=== PATIENT | female | born 1970 | race Hispanic/Latino ===

== ENCOUNTER 2018-02-20 09:27 | Observation (INO) | payer MEDICAID ==
[2018-02-16 15:33] LABS: Basophils # (Auto) 0.1 K/mm3 (0.0-0.1); Basophils % (Auto) 1.1 % (0.0-1.8); Eosinophils # (Auto) 0.1 K/mm3 (0.0-0.4); Eosinophils % (Auto) 1.4 % (0.0-4.3); Hematocrit 40.1 % (30.3-42.9); Hemoglobin 13.6 gm/dl (10.1-14.3); Lymphocytes # (Auto) 2.4 K/mm3 (1.2-5.4); Lymphocytes % (Auto) 30.1 % (13.4-35.0); Mean Corpuscular HGB Conc 34 % (30-34); Mean Corpuscular Hemoglobin 31 pg (28-32); Mean Corpuscular Volume 91 fl (79-97); Monocytes # (Auto) 0.7 K/mm3 (0.0-0.8); Monocytes % (Auto) 8.2 % (0.0-7.3); Platelet Count 436 K/mm3 (140-440); Red Blood Count 4.41 M/mm3 (3.65-5.03); Red Cell Distribution Width 12.8 % (13.2-15.2)
--- NOTE | 2018-02-17 10:50 | Anesthesia Day of Surgery ---
Anesthesia Day of Surgery - Day of Surgery Patient Examined: Yes Patient H&P Reviewed: Yes Patient is NPO: Yes
[~2018-02-20 09:27] MED LIST: LACTATED RINGERS 1,000 ML IV SCH; NEURONTIN PO NR; VERSED IV NR
[2018-02-20] MEDS ORDERED: NACL BACTERIOSTATIC INFILTRATI ONE (09:37)
[2018-02-20] MEDS ORDERED: PEPCID IV NR (10:00)
[2018-02-20] MEDS ORDERED: ANCEF/STERILE WATER 2 GM/20 ML IV NR (10:00)
[2018-02-20] MEDS ORDERED: TRANSDERM-SCOP TD NR (10:00)
[2018-02-20] MEDS ORDERED: SUBLIMAZE ONE ×2 (12:22→13:03)
[2018-02-20] MEDS ORDERED: REGLAN ONE (13:03)
[2018-02-20] MEDS ORDERED: DIPRIVAN 10 MG/ML IV ONE (13:03)
[2018-02-20] MEDS ORDERED: XYLOCAINE MPF 2% ONE (13:03)
[2018-02-20] MEDS ORDERED: QUELICIN ONE (13:03)
[2018-02-20] MEDS ORDERED: ZOFRAN ONE (13:03)
[2018-02-20] MEDS ORDERED: NACL P/F VIAL (10 ML) 10 ML ONE (13:16)
[2018-02-20] MEDS ORDERED: NACL 0.9% 1000 ML 1,000 ML ONE ×3 (13:16→18:48)
[2018-02-20] MEDS ORDERED: METHYLENE BLUE ONE (13:17)
[2018-02-20] MEDS ORDERED: BACITRACIN ONE (13:17)
[2018-02-20] MEDS ORDERED: ANCEF ONE ×2 (13:17→18:29)
[2018-02-20] MEDS ORDERED: GARAMYCIN ONE (13:17)
[2018-02-20] MEDS ORDERED: NACL 0.9% 100 ML ONE (13:18)
[2018-02-20] MEDS ORDERED: HEPARIN 10,000 UNITS/10 ML ONE (13:18)
--- NOTE | 2018-02-20 13:43 | Anesthesia Day of Surgery ---
Anesthesia Day of Surgery - Day of Surgery Patient Examined: Yes Patient H&P Reviewed: Yes Patient is NPO: Yes
[2018-02-20] MEDS ORDERED: DEMEROL IV PRN (13:44)
[2018-02-20] MEDS ORDERED: ZOFRAN IV PRN ×2 (13:44→19:04)
[2018-02-20] MEDS ORDERED: TORADOL IV PRN ×2 (13:44→23:02)
--- NOTE | 2018-02-20 13:44 | Anesthesia Consultation ---
Anesthesia Consult and Med Hx Date of service: 02/20/18 - Airway Anesthetic Teeth Evaluation: Good ROM Head & Neck: Adequate Mental/Hyoid Distance: Adequate Mallampati Class: Class II Intubation Access Assessment: Probably Good - Pulmonary Exam CTA: Yes - Cardiac Exam Cardiac Exam: RRR - Pre-Operative Health Status ASA Pre-Surgery Classification: ASA2 Proposed Anesthetic Plan: General - Central Nervous System Hx Psychiatric Problems: Yes - Other Systems Hx Alcohol Use: Yes (SOCIALLY) Hx Substance Use: No Hx Cancer: Yes
[2018-02-20] MEDS ORDERED: LACTATED RINGERS 1,000 ML ONE ×2 (13:47→14:28)
[2018-02-20] MEDS ORDERED: VERSED ONE (13:48)
--- NOTE | 2018-02-20 13:50 | Operative Report ---
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 Asst.: Ellen Armenta MD Anesthesia: Gen. Findings: Two right breast clips present within right total mastectomy. 4 sentinel lymph nodes identified and negative for malignancy on frozen section of pathology, one SLN with questionable atypia Complications: None Drains: per Plastic Surgery Estimated blood loss: Minimal Disposition: PACU in good condition Indications for operative procedure: This is a 48-year-old lady with newly diagnosed stage I right breast cancer of the lower outer quadrant, right breast mass at the 7:00 position 5-6 cm from the nipple, IDCA [id number] ER positive. Recommendations were to proceed with a right total mastectomy with SLNB and possible ALND and prophylactic left total mastectomy given CHEK2 positive gene mutation. Patient wished to proceed with plastic reconstructive surgery. Procedure in detail: Anesthesia placed a bilateral pectoral muscle block prior to going to the operating room. The patient was taken to the operating room and was placed supine. Gen. anesthesia was administered. The right nipple was injected with radioisotope and 1 cc of methylene blue dye with 1 cc of saline. Ultrasound was used to sundeep area of known right breast cancer at the 7:00 position 5-6 cm from the nipple. Bilateral breast were prepped and draped in the normal postoperative fashion. Timeout was performed. Typical mastectomy incision markings were made with right mastectomy marking to include known breast cancer at the 7:[address] Wynne placed left port. Attention was then taken towards the left breast first. A skin incision was made with a 10 blade knife and dissection taken down to the subcutaneous tissues. First began raising of the superior flap to the level of the clavicle superiorly and posteriorly to the pectoralis muscle. Followed by raising of the medial flap to the level of the sternum and posteriorly to the pectoralis muscle. Followed by raising of the lateral flap to the level of the latissimus dorsi muscle and taken down posteriorly. Followed by raising of the inferior flap to the level of the inframammary fold taken posterior to the pectoralis muscle. The mastectomy/breast was removed from the pectoralis muscle without incident. The specimen was appropriately marked and sent to pathology. Hemostasis was obtained with the bovie cautery. Chest wall was irrigated and suctioned. Attention was taken towards the right breast. A gamma probe was inserted into the axilla to identify the sentinel lymph node location. A skin incision was made with a 10 blade knife and dissection taken down to the subcutaneous tissues. First began raising of the superior flap to the level of the clavicle superiorly and posteriorly to the pectoralis muscle. Followed by raising of the medial flap to the level of the sternum and posteriorly to the pectoralis muscle. Followed by raising of the lateral flap to the level of the latissimus dorsi muscle and taken down posteriorly. The gamma probe was inserted into the axilla and 4 sentinel lymph nodes were identified, all remaining counts were less than 10% of the highest SLN, one SLN with blue dye present. Lymph nodes were sent to pathology with findings negative for malignancy noted on frozen section. One SLN with questionable atypia, but no malignancy. Then proceeded with raising of the inferior flap to the level of the inframammary fold taken posterior to the pectoralis muscle. The mastectomy/breast was removed from the pectoralis muscle without incident. The specimen was appropriately marked and sent to radiology with findings of 2 breast clips present and sent to pathology. Hemostasis was obtained with the bovie cautery. Right chest wall was irrigated and suctioned. Will await final pathology from first SLN with questionable atypia. Plastic surgery then proceeded with bilateral tissue public address system installer placement.
[2018-02-20] MEDS ORDERED: LACTATED RINGERS 1,000 ML IV SCH ×2 (14:00→20:00)
[2018-02-20] MEDS ORDERED: HEPARIN 10,000 UNITS/10 ML IV ONE (14:27)
[2018-02-20] MEDS ORDERED: NACL 0.9% IV ONE (14:27)
[2018-02-20] MEDS ORDERED: ePHEDrine 50 MG/5 ML-0.9% NACL IV ONE (14:28)
[2018-02-20] MEDS ORDERED: WATER FOR IRRIG STERILE IR ONE (14:28)
--- NOTE | 2018-02-20 15:20 | Fluoroscopy Report ---
Chest in OR: Line placement. A left-sided port has been placed via the jugular vein. The tip lies in the superior cavoatrial junction region. The mediastinal contour is unremarkable. The lungs are clear. There is a well-positioned endotracheal tube. Impression: Port placement as described with no apparent complication.
[2018-02-20] MEDS ORDERED: DECADRON ONE (17:58)
[2018-02-20] MEDS ORDERED: TYLENOL PO PRN (19:04)
[2018-02-20] MEDS ORDERED: REGLAN PO PRN (19:04)
[2018-02-20] MEDS ORDERED: SODIUM CHLORIDE FLUSH SYRINGE 10 ML IV PRN (19:04)
[2018-02-20] MEDS ORDERED: BENADRYL PO PRN (19:04)
--- NOTE | 2018-02-20 19:04 | Post Operative Note ---
Pre-op diagnosis: right breast cancer Post-op diagnosis: same Findings: bilateral mastectomy defects Procedure: bilateral prepec breast reconstruction with expanders and mesh Anesthesia: ARMANDO Surgeon: CECY ÁLVAREZ Estimated blood loss: minimal Pathology: none Condition: stable Disposition: PACU
[2018-02-20] MEDS ORDERED: PERCOCET 5/325 PO PRN (19:06)
[2018-02-20] MEDS: DILAUDID IV PRN ×2 (19:10→19:23)
--- NOTE | 2018-02-20 21:36 | Operative Report ---
PREOPERATIVE DIAGNOSIS: Right breast cancer. POSTOPERATIVE DIAGNOSIS: Right breast cancer. PROCEDURE: 1. Bilateral breast reconstruction with tissue public space attendant prepectoral placement, CPT code 65531-81. 2. Bilateral breast reconstruction using biological mesh, CPT code 50737-55. 3. Application of negative pressure wound VAC device, JORDEN to bilateral breasts for breast reconstruction, CPT code 45870-41. SURGEON: Tim Leblanc MD INSULATION HOSEMAN: None. ANESTHESIA: General. OPERATIVE INDICATIONS: The patient is a 48-year-old female who presented to my office in consultation for breast reconstruction. She was going to undergo a bilateral mastectomy, Dr. Vance for right-sided breast cancer. She desired implant reconstruction with expanders and so risks and benefits of the surgery were discussed with the patient. She agreed. OPERATIVE DETAILS: The patient was already brought to the operating room with Dr. Vance and upon my arrival, the patient was under general anesthesia and Dr. Vance completed a left-sided mastectomy and was in the process of completing the right-sided mastectomy. Assessed the defect, checked the skin flaps which were adequate and decided on a prepectoral tissue public space attendant reconstruction. The next steps were then performed on the back table in preparation for implantation on the back table. We opened first to repair of the left implant and then the right and so for the left, we used a [place] [employer] ultra high profile smooth 650 mL tissue public space attendant with serial #[id number] and we removed the air from it and added 250 mL of saline. I then opened up a piece of 12 x 12 inch Vicryl mesh and wrapped the entire public space attendant and Vicryl mesh and secured it with 2-0 PDS sutures on the backside of the public space attendant. It was trimmed to the appropriate size, so ____ a lot of excess mesh. We then opened up a piece of FlexHD pliable shaped perforated medium 11 x 20 cm and unfortunately, the pieces were not properly documented by the OR staff, so it is uncertain which piece went on which side, but the 2 pieces that were used in this case were both from the same kit with what looks like serial #[id number] from bilateral breast kit, we took the piece of FlexHD and secured it to the lower pole of the tissue public space attendant using the suture tabs and 2-0 PDS sutures. It was soaked in triple antibiotic irrigation and the same exact procedure was performed for the building of the right tissue public space attendant as well. Once Dr. Vance was complete, we began the reconstruction. Starting on the left, the tissue public space attendant was placed in the prepectoral space and then secured using the suture tabs as well as the Vicryl and FlexHD mesh circumferentially in order to secure to the chest wall. We then irrigated, achieved hemostasis and placed 2 drains in 19 and a 15-Kiswahili round Kevin drains, secured those, stabilized the lateral breast border with some 2-0 Vicryl interrupted sutures and then closed with 3-0 Monocryl deep dermals and a 2-0 Monocryl barbed suture on the skin. The exact same procedure was performed on the right side as well. At the completion of that, we placed the JORDEN negative pressure wound VAC device to both breasts for postoperative wound healing and achieve adequate suction with no leak. The drains were dressed with a chlorhexidine Biopatches and a Tegaderm and the patient was awakened from general anesthesia, transferred to PACU in stable condition. FINDINGS: Bilateral mastectomy defects. COMPLICATIONS: None. SPECIMENS: None. JOB# [id number] HARESH/CARRINGTON
[2018-02-20] MEDS ORDERED: COLACE PO SCH (22:00)
[2018-02-20] MEDS ORDERED: MORPHINE IV PRN (23:01)
[2018-02-20] MEDS: COLACE PO SCH (23:30)
[2018-02-20] MEDS: ANCEF/NS 1 GM/50 ML 1 GM/50 ML BAG IV SCH (23:30)
[2018-02-20] MEDS: NEURONTIN PO SCH (23:32)
[2018-02-21] MEDS: ANCEF/NS 1 GM/50 ML 1 GM/50 ML BAG IV SCH (07:30)
[2018-02-21] MEDS: NEURONTIN PO SCH (07:30)
--- NOTE | 2018-02-21 08:06 | Progress Note ---
Assessment and Plan This is a 48 year old lady with Stage I right breast cancer of the lower outer quadrant and CHEK2 positive gene mutation POD#1 bilateral mastectomy with right SLNB and immediate tissue heavy machinery operator placement. 1. Pain in good control. 2. OOB to hallway. 3. Bilateral chest incisions healing well. 4. MELITA drain education. 5. D/C planning for later today. 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 Interval history: POD#1 Bilateral total mastectomy with right SLNB and bilateral tissue heavy machinery operator placement Objective - Constitutional Vitals: Vital Signs - 12hr 02/20/18 20:30 Pulse Rate [ 78 Apical] General appearance: Present: no acute distress - EENT Eyes: PERRL, EOM intact ENT: hearing intact, clear oral mucosa, dentition normal Ears: bilateral: normal - Neck Neck: supple, normal ROM - Respiratory Respiratory effort: normal Respiratory: bilateral: CTA - Breasts Breasts: other (bilateral PICCO dressings intact, skin well perfused; MELITA drains to bulb suction) - Cardiovascular Rhythm: regular Heart Sounds: Present: S1 & S2 Extremities: no ischemia, pulses intact, pulses symmetrical, No edema, normal temperature, normal color, Full ROM - Gastrointestinal General gastrointestinal: Present: soft, non-tender, non-distended Rectal Exam: deferred - Genitourinary Female genitourinary: deferred - Integumentary Integumentary: clear, warm, dry - Musculoskeletal Musculoskeletal: strength equal bilaterally - Neurologic Neurologic: CNII-XII intact, moves all extremities - Psychiatric Psychiatric: appropriate mood/affect, intact judgment & insight, memory intact, cooperative - Labs CBC & Chem 7: 02/16/18 14:39
--- NOTE | 2018-02-21 08:30 | XRay Report ---
Operative right breast surgical specimen mammogram: A single tissue specimen is submitted that contains 2 biopsy markers. One of the markers is adjacent to a circumscribed nodule. No calcifications identified.
--- NOTE | 2018-02-21 10:24 | Operative Report ---
Operative Report Operative Report: Date of operation: 02/20/18 Reoperative diagnosis: Right-sided breast cancer Postoperative diagnosis: Same as above Procedure performed: Placement of left internal jugular Port-A-Cath using ultrasound guidance, fluoroscopy Surgeon: Jaimie Wynne DO Gang Hemstitching Machine Operator: Sabrina Vance M.D. Anesthesia: Gen., local Findings: On intraoperative CXR - good placement of port and no PTX EBL: 25cc Complications: none Disposition: stable to PACU HPI and indication: Patient is a 48-year-old female who has recently been diagnosed with right-sided breast cancer, with genetic mutation. The patient is seen by Dr. Vance and outpatient oncology and deemed a candidate for chemotherapy. All of the risks associated with the procedure were discussed with the patient including but not limited to pneumothorax, infection, bleeding , malpositioned port, injury to other structures. The patient understands and all questions were answered. Consent was signed and placed on chart. Procedure in detail: The patient was identified in the preoperative area, taken back to operating room, placed on operating table in supine position. After anesthesia was induced both arms were tucked and upper chest and neck were prepped and draped in usual sterile fashion. A timeout was performed. The was placed in Trendelenburg position. Local anesthetic was infiltrated into the skin at the intended puncture site. The left subclavian vein was identified on ultrasound and was accessed on the first stick. There was return of dark red, nonpulsatile blood. The wire was threaded however there was resistance and the wire could not be advanced. The subclavian vein approach was aborted and the needle removed. The left internal jugular vein was then identified on ultrasound and accessed on the first stick. It was return of dark red nonpulsatile blood. The wire was threaded without resistance and positioning confirmed using fluoroscopy. Using a 15 blade, an incision was made in the LEFT upper chest and dissection carried down through the skin and subcutaneous tissue using Bovie electrocautery. Hemostasis was achieved along the way. A pocket for the port was then created bluntly and with electrocautery. The catheter was flushed and tunneled from the pocket to the wire. A breakaway catheter/dilator sheath then inserted over the wire under fluoroscopy, and the wire and dilator removed. The catheter was then inserted through the breakaway catheter which was then removed. The catheter sat flush under the skin. Using continuous fluoroscopy, the catheter was pulled back until the tip was visualized in the right atrium. The catheter was then cut to size and the port attached in the usual fashion. The port was then sutured into place to the pre-pectoral fascia using 2-0 Vicryl interrupted sutures. The wound was irrigated and hemostasis ensured. The port was tested with heparinized saline and there was return of blood and it flushed easily. The port was then instilled with 3000 units of heparin. The deep dermal layer was then closed with interrupted 3-0 Vicryl stitches. The skin incisions were closed with 4-0 Monocryl subcuticular stitches and skin glue. Intraoperative chest x-ray did show good positioning of the port, without evidence of pneumothorax At the end of the case, all sponge, instrument, sharp counts were correct 2. The patient was awoken from anesthesia and taken to PACU in stable condition.
[2018-02-21] MEDS: COLACE PO SCH (11:22)
[2018-02-21 13:46] VITALS: BP 85/45
== END 2018-02-21 14:45 | disposition home or self-care (01) ==
LOC: OR 09:27 → OB 19:05
PROVIDERS: ADMIT Plastic Surgery; ATTEND Plastic Surgery
DX: C50.911 Malignant neoplasm of unspecified site of right female breast (principal); C50.912 Malignant neoplasm of unspecified site of left female breast
CPT/HCPCS: 19303; 19340; 36415; 64450; 76098; 77001; 78800; 84703; 85025; 88307; 88331; 88342; 96365; 96375; 96376; A9541; C1781; C1788; C1789; G0378; J0330; J0690; J1100; J1170; J1580; J1644; J1885; J2175; J2250; J2405; J2704; J2765; J3010; J7030; J7120; Q4128; Q9968; 88305; 88309; 88333